=== PATIENT | male | born 1995 | race Caucasian/White ===

== ENCOUNTER 2023-09-19 08:30 | Emergency (ER) | payer MEDICAID, OTHER ==
[~2023-09-19] VITALS: Ht 167.6 cm; Wt 68.2 kg
[~2023-09-19 08:30] MED LIST: NO HOME MEDS
[2023-09-19 08:31] VITALS: BP 145/84; PULSE 87; RESP 16; O2SAT 98
[2023-09-19 09:34] VITALS: TEMP 98.7
== END 2023-09-19 09:38 | disposition home or self-care (01) ==
LOC: ER 08:30
DX: S61.511A Laceration without foreign body of right wrist, initial encounter (principal); W04.XXXA Fall while being carried or supported by other persons, initial encounter; Y93.H2 Activity, gardening and landscaping; Y92.89 Other specified places as the place of occurrence of the external cause; Y99.8 Other external cause status
CPT/HCPCS: 73110; 99283